=== PATIENT | male | born 1965 | race Hispanic/Latino ===

== ENCOUNTER 2018-07-06 12:46 | Emergency (ER) | payer OTHER | END 2018-07-06 14:03 | disposition home or self-care (01) | LOC: EDH 12:46 | DX: S80.02XA Contusion of left knee, initial encounter (principal); E11.9 Type 2 diabetes mellitus without complications; W01.0XXA Fall on same level from slipping, tripping and stumbling without subsequent striking against object, initial encounter; Y93.89 Activity, other specified; Y92.89 Other specified places as the place of occurrence of the external cause; Y99.8 Other external cause status | CPT/HCPCS: 73562; 73700 ==

== ENCOUNTER 2023-12-17 11:06 | Emergency (ER) | payer OTHER ==
[~2023-12-17] VITALS: Ht 180.3 cm; Wt 154.2 kg
[2023-12-17 11:25] VITALS: BP 122/82; PULSE 95; RESP 16
[2023-12-17] MEDS: HYDROCODONE/ACETAMINOPHEN 5/325 MG TAB PO ONE (11:50)
[2023-12-17] MEDS: KETOROLAC 60 MG VIAL (30MG/ML) IM ONE (11:50)
== END 2023-12-17 12:57 | disposition home or self-care (01) ==
LOC: EDH 11:06
DX: G89.29 Other chronic pain (principal); M25.551 Pain in right hip; M54.50 Low back pain, unspecified; I10 Essential (primary) hypertension
CPT/HCPCS: 99283; 96372; J1885